=== PATIENT | female | born 1985 | race Two or more races ===

== ENCOUNTER 2022-07-19 06:58 | Day surgery (SDC) | payer OTHER | END 2022-07-19 15:00 | disposition home or self-care (01) | LOC: CIR.AMB 06:58 | PROVIDERS: ATTEND Obstetrics & Gynecology | DX: O02.1 Missed abortion (principal); O72.2 Delayed and secondary postpartum hemorrhage; Z20.822 Contact with and (suspected) exposure to COVID-19; Z88.6 Allergy status to analgesic agent ==